=== PATIENT | female | born 1940 | race Caucasian/White ===

== ENCOUNTER 2023-09-29 17:00 | Emergency (ER) | payer OTHER, SELFPAY ==
[2023-09-29 17:04] VITALS: BP 161/90
--- NOTE | 2023-09-29 19:03 | ED.GENMED ---
History of Present Illness
General
Chief Complaint: Cough
Time Seen by Provider: 09/29/23 18:43
History of Present Illness
History of Present Illness:
83-year-old female with history of pulmonary fibrosis presents to the emergency department for evaluation of persistent cough and chest congestion for the past week and a half. Was seen in urgent care last week and started on albuterol and Medrol
without improvement. Urgent care today due to abnormal lung sounds was sent to the emergency department. Denies any fevers or shortness of breath. She is a non-smoker
Review of Systems
Review of Systems
Allergies reviewed?: Yes
All Other Systems: ROS reviewed and negative except as documented in HPI and ROS
Phy Exam
Physical Exam
Physical Exam:
GEN: Well appearing, NAD, WDWN
HEENT: Oral mucosa moist, no scleral icterus
Cardiac: Regular rateAnd rhythm, no murmurs
Lung: No respiratory distress, no tachypnea, Coarse wheezes and rhonchi heard throughout all lung li with interstitial rales at the bases
MSK: No gross deformity or injuries
Skin: Good color, no pallor or jaundice, no rashes
Neuro: AO x3, moves all extremities freely
Psych: Calm, cooperative
Course
Orders/Labs/Results
Orders:
Orders
09/29/23 18:52
Ipratropium/Albuterol Sulfate [Duoneb] 3 ml INH R NOW STA
CR Chest - 2 Views Urgent
Comment:
Reason For Exam: wheezing
09/29/23 19:48
Ipratropium/Albuterol Sulfate [Duoneb] 3 ml .ROUTE .STK-MED ONE
09/29/23 19:49
Ipratropium/Albuterol Sulfate [Duoneb] 3 ml INH R NOW ONE
Vital Signs
Initial and Last Documented VS:
Initial Vital Signs
Temp Pulse Resp BP Pulse Ox
98.2 F 94 20 161/90 95
09/29/23 17:04 09/29/23 17:04 09/29/23 17:04 09/29/23 17:04 09/29/23 17:04
Last Documented Vital Signs
Temp Pulse Resp BP Pulse Ox
98.6 F 85 19 142/88 97
09/29/23 19:53 09/29/23 19:53 09/29/23 19:53 09/29/23 19:53 09/29/23 19:53
MDM/Problems Addressed
MDM/Problems Addressed:
Imaging shows no evidence for acute pulmonary disease, chronic findings are noted. Given the persistence of her symptoms and her compromised underlying lung health will cover with empiric antibiotics and a longer course of steroids tapered over 2
weeks. She is clinically well with no evidence for respiratory distress
*Critical Care Note
Total Time (30-74mins, 75-104mins- exclusive of procedures): Not Applicable
ED Attending Note
-
Portions of this chart may have been created with voice recognition software.� Occasional wrong word or��sound alike� substitutions may have occurred due to the inherent limitations of voice recognition software.
Discharge Plan
Departure
Patient Disposition: Home (Routine Discharge)
Date of Disposition: 09/29/23
Time of Disposition: 19:32
Patient with high blood pressure during this ER visit?: No
Discharge Problem:
Acute bronchitis
Instructions: Acute Bronchitis, Adult (DC)
Prescriptions:
New
azithromycin [Zithromax] 250 mg tablet
250 mg PO DAILY Qty: 6 0RF
Rx Instructions:
500mg PO on day 1 then 250mg po qd x 4d
prednisone 10 mg tablet
10 mg PO DAILY Qty: 43 0RF
Rx Instructions:
Once daily as follows: 60, 60, 50, 50, 40, 40, 30, 30, 20, 20, 10, 10, 5, 5
ipratropium-albuterol 0.5 mg-3 mg(2.5 mg base)/3 mL solution for nebulization
3 ml inhalation Q6H PRN (Reason: wheezing) Qty: 90 1RF
Referrals:
UNKNOWN - PT DOES,NOT KNOW [Family Provider] -
Interventions
Interventions:
*Risk Screen - Suicide Last Done: 09/29/23 17:04
*General Assessment Last Done: 09/29/23 17:04
*Neglect/Abuse Screening Last Done: 09/29/23 17:04
ED- Fall Risk Assessment Last Done: 09/29/23 19:28
*Nursing Disposition Last Done: 09/29/23 19:53
ED- Pulmonary Assessment Last Done: 09/29/23 19:28
Discharge Date and Time
Discharge Date/Time: 09/29/23 19:54
Print Language: LITHUANIAN
[2023-09-29] MEDS: DUONEB 3 ML INH ×2 (19:25→19:49)
[2023-09-29 19:53] VITALS: BP 142/88
== END 2023-09-29 19:54 | disposition home or self-care (01) ==
LOC: EMR 17:00
PROVIDERS: EMERGENCY PHYSICIAN Emergency Medicine
DX: J20.9 Acute bronchitis, unspecified (principal); J84.10 Pulmonary fibrosis, unspecified; Z88.5 Allergy status to narcotic agent
CPT/HCPCS: 99283; 94640; 71046